=== PATIENT | female | born 1975 | race Caucasian/White ===

== ENCOUNTER 2018-01-08 17:02 | Inpatient (IN) | payer MEDICAID ==
[~2018-01-08] VITALS: Ht 182.9 cm; Wt 124.4 kg
--- NOTE | ~2018-01-08 | CN ---
PATIENT NAME:LIZ RAMESH MEDICAL RECORD: [id number] : 73 LOCATION:[facility] D.2118 ADMIT DATE: 01/08/18 ACCOUNT: [id number] CONSULTING PHYSICIAN: FRANKLIN TOVAR MD REFERRING PHYSICIAN: SATINDER SCHREIBER MD DATE OF CONSULTATION: 01/10/2018 HISTORY OF PRESENT ILLNESS: A 42-year-old female with a history of PE, DVT in the past. She has a history of chest pain. This is ongoing currently with dyspnea, lower extremity edema, hypertension, obesity, hypothyroidism, chest pain both typical and atypical features, elevated D-dimer. PE ruled out, DVT ruled out. We are asked to see concerning her cardiovascular status. PAST MEDICAL HISTORY: Includes: 1. History of pulmonary embolus as described above. 2. Hypertension. 3. Hypothyroidism on replacement. 4. Obesity. MEDICATIONS: Include lisinopril 10 mg p.o. daily, Adderall, Klonopin 1 mg p.o. b.i.d., Maxzide 37.5/25 every day, Synthroid unknown dose. REVIEW OF SYSTEMS: The patient reports easy bruising but reports no swollen glands. The patient reports no fever, no night sweats, no significant weight gain, no significant weight loss. No significant exercise tolerance. The patient reports no dry eyes, no irritation, no vision change. Patient reports no difficulty hearing and no ear pain. Patient reports no frequent nose bleeds or nose and sinus problems. Patient reports on arm pain on exertion. No shortness of breath while lying down. No history of heart murmur. Patient reports no cough, no wheezing or coughing up blood. Patient reports no abdominal pain, no vomiting. Normal appetite. No diarrhea and not vomiting blood. No nausea and no constipation. Patient reports no incontinence. No difficulty urinating. No hematuria. No increased frequency. Patient reports no muscle aches. No weakness, no arthralgias, no back pain. No swelling of the extremities. Patient reports no abnormal mole, no jaundice, no rashes. Reports no loss of consciousness. No weakness and no numbness. No seizures, dizziness, or headaches. The patient reports no depression, no sleep disturbance, feeling safe in a relationship and no alcohol abuse. Patient reports on fatigue. Reports no runny nose or sinus pressure. No itching, no hives, and no frequent sneezing. PHYSICAL EXAMINATION: GENERAL: Middle-aged female in no acute distress. VITAL SIGNS: Blood pressure 120/70, pulse 80 and regular. HEENT: Normocephalic, atraumatic. NECK: No JVD or bruit. HEART: Regular. LUNGS: Good air excursion. ABDOMEN: Soft, nontender. EXTREMITIES: Pulses 2+. No edema. NEUROLOGIC: Grossly intact. DIAGNOSTIC DATA: ECG shows sinus tachycardia with nonspecific ST-T changes, her juvenile T-wave changes, possibly anteriorly. CONSULT REPORT [id number] LIZ RAMESH IMPRESSION: Given overall history, we will plan for diagnostic angiography, intervention based on the above. TRANSINT:[id number] Voice Confirmation ID: [id number] DOCUMENT ID: [id number] FRANKLIN TOVAR MD at 1155 CC: [id number] DICTATION DATE: 01/10/18 0857 IT APPLICATION ARCHITECT: 01/10/18 1102 ADM IN [place] [id number] [place] [address]
--- NOTE | ~2018-01-08 | OP ---
PATIENT NAME: LIZ RAMESH MEDICAL RECORD: [id number] :73 LOCATION:D.M[facility] D.2118 ADMISSION DATE:01/10/18 SURGEON: FRANKLIN TOVAR MD DATE OF OPERATION: 01/10/2018 PROCEDURE: Left heart cath right femoral approach. CATHETERS: A 5-Yoruba sheath, 5/4 Radha, 5/4 pig. The procedure was well tolerated. The patient was returned to maki, sheath removed. ExoSeal device placed. FINDINGS: Left ventriculography in the 30-degree BOYLE view. Normal wall motion, normal systolic function, normal coronary anatomy. LEFT MAIN: Left main is free of disease. LAD: LAD is free of disease. ____. CIRCUMFLEX: Free of disease in marginal system. RIGHT CORONARY ARTERY: Codominant system free of disease. IMPRESSION: Normal systolic function. Normal coronary anatomy. TRANSINT:[id number] Voice Confirmation ID: [id number] DOCUMENT ID: [id number] FRANKLIN TOVAR MD at 1005 CC: [id number] DICTATION DATE: 01/10/18 1510 MANAGER MECHANICAL MAINTENANCE: 01/10/18 1544 ADM IN [place] [id number] [place] [id number]
--- NOTE | ~2018-01-08 | HEMODYNAMI ---
PATIENT:LIZ RAMESH MEDICAL RECORD: [id number] : 73 [facility] D.2118 [id number] ADMISSION DATE: 01/08/18 Generatedon:01/10/201815:10 Patient name: LIZ RAMESH Patient #: [id number] SSN: : 1975 Date of study: 01/10/2018 Page: Of Hemodynamic Procedure Report Patient Data Patient Demographics Procedure consent was obtained First Name: LIZ Gender: Female Last Name: GADIEL : 1975 Patient #: [id number] Age: 42 year(s) Race: Unknown Additional ID: [id number] Contact details [address]: [address] [place] [address] State: [place] City: [place] Zip code: [address] Past Medical History Allergies Allergen Reaction Date Comments Reported Other allergy 01/10/2018 iodine Admission Admission Data Admission Date: 01/08/2018 Admission Time: 17:02 Room #: [facility]8 Procedure Procedure Types Cath Procedure Diagnostic Procedure [facility] w/Coronaries Sedation Charges Moderate Sedation up to 15 minutes Procedure Description Procedure Date Procedure Date: 01/10/2018 Procedure Start Time: 14:55 Procedure End Time: 15:06 Procedure Staff Name Function Jose Alberto Nelson MD Performing Physician Latricia Rivero RT Monitor Parvez Stearns RN Nurse Josie Oneill RT Scrub Procedure Data Cath Procedure Fluoroscopy Diagnostic fluoroscopy Total fluoroscopy Time: 0.9 time: 0.9 min min Diagnostic fluoroscopy Total fluoroscopy dose: 338 dose: 338 mGy mGy Contrast Material Contrast Material Type Amount (ml) Isovue 300 38 Entry Location Entry Primary Successful Side Size Upsize Upsize Entry Closure Succes sful Closure Location (Fr) 1 (Fr) 2 (Fr) Remarks Device Remarks Femoral Right 5 Fr Exoseal artery Estimated blood loss: 5 ml Diagnostic catheters Device Type Used For End Catheter Placement MULTIPACK JL 4.0 5Fr Left Coronary catheter Angiography MULTIPACK 3DRC 5Fr Right Coronary catheter Angiography MULTIPACK Pigtail 5 Fr Multi-vessel catheter Angiography Procedure Complications No complications Procedure Medications Medication Administration Route Dosage Oxygen NC 2 l/min Lidocaine 2% added to field 20 Heparin Flush Bag added to field 2 bags (1000units/500ml NS) 0.9% NaCl I.V. 100 ml/hr Solumedrol I.V. 125 mg Versed I.V. 2 mg Fentanyl I.V. 100 mcg Versed I.V. 1 mg Fentanyl I.V. 50 mcg Fentanyl I.V. 50 mcg Versed I.V. 1 mg Hemodynamics Rest Heart Rate: 95 (bpm) Pressure Samples Time Site Value (mmHg) Purpose Heart Use Rate(bpm) 15:03 LV 128/-13,2 Snapshot 103 Gradients Valve Time Site Site Mean SEP/DFP Peak To Heart Use 1 2 (mmHg) (sec/min) Peak Rate (mmHg) (bpm) Aortic 15:04 LV AO 105 Snapshots Pre Cath Intra NCS Post Cath Vital Signs Time Heart Resp SPO2 NIBP (mmHg) Rhythm Pain Sedation Rate (ipm) (%) Status Level (bpm) 14:44:09 99 16 97 147/90(115) NSR 0 (11) 10(A) , No pain 14:48:38 96 17 98 141/96(116) NSR 0 (11) 10(A) , No pain 14:53:04 94 27 95 155/97(115) NSR 0 (11) 10(A) , No pain 14:57:38 97 16 96 153/86(120) NSR 0 (11) 9(A) , No pain 15:01:58 94 15 94 141/99(127) NSR 0 (11) 9(A) , No pain 15:06:29 101 15 96 145/81(104) NSR 0 (11) 10(A) , No pain Medications Time Medication Route Dose Verified Delivered Reason Notes Eff ectiveness by by 14:49:45 Oxygen NC 2 Jose Alberto Hannon used for l/min [facility] Stearns public relations associate 14:49:52 Lidocaine 2% added 20ml Jose Alberto Abrams for local to vial [facility] anesthetic field MD ERVIN 14:50:00 Heparin Flush added 2 Jose Alberto Abrams used for Bag to bags [facility] Ryan Nelson procedure (1000units/500ml field MD ERVIN NS) 14:50:09 Solumedrol I.V. 125 Jose Alberto Buffie used for for mg [facility] Ryan Stearns public relations associate iodine MD allergy 14:50:09 0.9% NaCl I.V. 100 Jose Alberto Hannon Per ml/hr [facility] Ryan Stearns RN physician 14:55:22 Versed I.V. 2 mg Jose Alberto Padronie for OmarRyan Stearns RN sedation 14:55:29 Fentanyl I.V. 100 Jose Alberto Buffie for mcg OmarRyan Stearns RN sedation 15:00:01 Versed I.V. 1 mg Jose Alberto Padronie for OmarRyan Stearns RN sedation 15:00:05 Fentanyl I.V. 50 Jose Alberto Buffie for mcg Omar Stearns RN sedation 15:04:09 Fentanyl I.V. 50 Jose Alberto Buffie for mcg Omar Stearns RN sedation 15:04:10 Versed I.V. 1 mg Jose Alberto Buffie for [facility] Ryan Stearns RN sedation Procedure Log Time Note 14:38:01 Diagnostic Cath status Elective 14:38:03 Latricia Rivero RT(R) sent for patient. Start room use. 14:38:04 Time tracking: Regular hours 14:38:09 Plan of Care:Hemodynamics will remain stable., Cardiac rhythm will remain stable., Comfort level will be maintained., Respiratory function will remain adequate., Patient/ family verbilizes understanding of procedure., Procedure tolerated without complication., Recovers from procedure without complications.. 14:38:39 Patient received from Med II to [facility] 2 Alert and oriented. Tansferred to table in Supine position. 14:38:41 Warm blankets applied, and fabby hugger turned on for patient comfort. 14:38:41 Correct patient and procedure confirmed by team. 14:38:43 Signed procedure consent form obtained from patient. 14:38:45 ECG and BP/O2 sat monitors applied to patient. 14:39:01 H&P Date Dictated: 01/09/2018 Within 30 days and on chart.. 14:39:03 Pre-procedure instructions explained to patient. 14:39:08 Family in patients room. 14:39:11 Patient NPO since Midnight. 14:39:24 Patient allergic to Other allergyiodine 14:39:29 Is the patient allergic to Iodine/contrast media? Yes. 14:39:31 Was the patient premedicated? Yes 14:39:36 Is patient on blood thinner?No 14:39:40 Patient diabetic? Yes. 14:39:41 If diabetic: On Metformin? Yes 14:40:28 unknown on last day of Metformin. "Its been a while" per patient 14:40:35 Snore? Yes 14:40:37 Sleep apnea? Yes 14:40:48 Airway obstruction? Yes Asthma 14:40:51 Dentures? No ? 14:40:56 Patient pain scale 0/10 ?. 14:41:14 Lab results completed and on chart. 14:41:19 Right groin area was prepped with chlora-prep and draped in sterile fashion 14:41:23 Alarms reviewed by R. N. 14:41:23 Sharps counted by scrub and verified by R.N. 14:41:25 Physician paged 14:42:00 Baseline sample Acquired. 14:42:06 Rhythm: sinus tachycardia 14:42:08 Full Disclosure recording started 14:45:10 Physician arrived 14:45:11 --------ALL STOP TIME OUT------ 14:45:11 Final Timeout: patient, procedure, and site verified with staff and physician. All members of the team are in agreement. 14:45:15 Right groin site verified by team. 14:45:17 Physical assessment completed. ASA score P 2 - A patient with mild systemic disease as per Jose Alberto Nelson MD. 14:45:20 Sedation plan: IV Moderate Sedation Medication:Versed, Fentanyl 14:45:24 Use device set Femoral Dx 14:45:25 ACIST Syringe (68750) opened to sterile field. 14:45:25 Bag Decanter (2002S) opened to sterile field. 14:45:26 Medline Cath Pack ([id number]) opened to sterile field. 14:45:26 SHEATH 5FR Greenway ([id number]) opened to sterile field. 14:45:27 DIAGNOSTIC WIRE .035 260cm J wire (138067) opened to sterile field. 14:45:28 ACIST Hand Control (40821) opened to sterile field. 14:45:28 ACIST Manifold (62765) opened to sterile field. 14:45:29 DIAGNOSTIC Multipack 5Fr catheter set ([id number]) opened to sterile field. 14:45:29 Tegaderm 4 x 4 (1626W) opened to sterile field. 14:49:45 Oxygen 2 l/min NC was administered by Parvez Stearns RN; used for procedure; 14:49:52 Lidocaine 2% 20ml vial added to field was administered by Jose Alberto Nelson MD; for local anesthetic; 14:50:00 Heparin Flush Bag (1000units/500ml NS) 2 bags added to field was administered by Jose Alberto Nelson MD; used for procedure; 14:50:09 Solumedrol 125 mg I.V. was administered by Parvez Stearns RN; used for procedure; for iodine allergy 14:50:09 0.9% NaCl 100 ml/hr I.V. was administered by Parvez Stearns RN; Per physician; 14:53:18 IV started by Parvez Stearns RN inright forearm with a 22 gauge IV catheter with 0.9% NaCl at O. 14:55:22 Versed 2 mg I.V. was administered by Parvez Stearns RN; for sedation; 14:55:29 Fentanyl 100 mcg I.V. was administered by Parvez Stearns RN; for sedation; 14:55:29 Procedure started. 14:55:32 Local anesthetic to right femoral artery with Lidocaine 2% by Jose Alberto Nelson MD.INITIAL ACCESS ONLY 14:55:33 Zero performed for pressure channel P1 14:55:58 A 5 Fr sheath was inserted into the Right Femoral artery 15:00:01 Versed 1 mg I.V. was administered by Parvez Stearns RN; for sedation; 15:00:03 A MULTIPACK JL 4.0 5Fr catheter was advanced over the wire and used for Left Coronary Angiography. 15:00:05 Fentanyl 50 mcg I.V. was administered by Parvez Stearns RN; for sedation; 15:01:32 LCA angiography performed. 15:01:35 Injector settings: Ml/sec: 3, Volume: 6, 15:01:37 Catheter removed. 15:01:42 A MULTIPACK 3DRC 5Fr catheter was advanced over the wire and used for Right Coronary Angiography. 15:02:26 RCA angiography performed. 15:02:29 Injector settings: Ml/sec: 3, Volume: 6, 15:02:44 Catheter removed. 15:02:50 A MULTIPACK Pigtail 5 Fr catheter was advanced over the wire and used for Multi-vessel Angiography. 15:03:57 LV hemodynamics recorded. 15:03:58 LV gram done using BOYLE 15:04:02 Injector settings: Ml/sec: 5, Volume: 15, 15:04:09 Fentanyl 50 mcg I.V. was administered by Parvez Stearns RN; for sedation; 15:04:10 Versed 1 mg I.V. was administered by Parvez Stearns RN; for sedation; 15:04:17 EF : 55 % 15:04:25 Catheter removed. 15:04:40 EXOSEAL 5Fr (EX500) opened to sterile field. 15:04:52 Sheath removed intact; hemostasis achieved with Exoseal to the Right Femoral artery. 15:05:19 Procedure ended.(Physican Out) 15:05:56 Fluoroscopy time 00.90 minutes. 15:06:00 Fluoroscopy dose: 338 mGy 15:06:00 Flurop Dose total: 338 15:06:04 Contrast amount:Isovue 300 38ml. 15:06:05 Sharps counted by scrub and verified by R.N. 15:06:07 Insertion/operative site no bleeding no hematoma. 15:06:10 Post-op/insertion site Right Femoral artery dressed using a 4 x 4 and Tegaderm. 15:06:13 Post right femoral artery:stable 15:06:14 Post Procedure Pulses reassessed and unchanged 15:06:22 Post procedure rhythm: unchanged. 15:06:25 Estimated blood loss: 5 ml 15:06:27 Post procedure instruction explained to patient.Patient verbalizes understanding. 15:06:27 Patient needs reinforcement of post procedure teaching. 15:06:38 Procedure type changed to Cath procedure, Diagnostic procedure, LHC, LHC w/Coronaries, Sedation Charges, Moderate Sedation up to 15 minutes 15:06:39 Procedure and supply charges have been captured, reviewed, submitted and are correct. 15:06:43 Procedure Complication : No complications 15:06:46 Vital chart was stopped 15:06:46 See physician's report for complete and final results. 15:06:49 Report given to Med II. 15:06:51 Patient transfered to Med II with Stretcher. 15:06:54 Procedure ended. 15:06:54 Full Disclosure recording stopped 15:06:59 End room use (Document Last) Device Usage Item Name Manufacture Quantity Catalog Hospital Part Current Minimal L ot# / Number Charge Number Stock Stock Serial# Code ACIST Acist 1 45782 [id number] [id number] [id number] 20 NuLife Recovery (29266) SpinPunch Bag Microtek 1 2001S 005739 64488 844171 5 Decanter [employer] Inc. () Medline Cardinal 1 [id number] 104017 26079 962296 5 Cath Pack Health ([id number]) SHEATH 5FR Terumo 1 WWV045 605964 592527 919950 40 Greenway (FFO276) DIAGNOSTIC St Juanjo 1 116305 589303 865828 086727 30 WIRE .035 260cm J wire (868894) ACIST Hand Acist 1 34753 422919 492698 124724 5 Control Medical (72469) Systems Inc ACIST Acist 1 51480 920782 355386 125256 5 Manifold Medical (98264) Systems Inc DIAGNOSTIC Cardinal 1 [id number] 351901 32200 145098 30 MultipTradeo Health 5Fr catheter set (HG4714) Tegaderm 4 3M 1 1626W 709846 163774 068151 5 x 4 (1626W) MULTIPACK Cardinal 1 107562 5 JL 4.0 5Fr Health catheter MULTIPACK Cardinal 1 478145 5 3DRC 5Fr Health catheter MULTIPACK Cardinal 1 [id number] 5 Pigtail 5 Health Fr catheter EXOSEAL 5Fr Cardinal 1 EX500 719681 738079 781138 10 (EX500) Health Signature Audit [place] Stage Time Signature Unsigned Intra-Procedure 01/10/2018 Latricia Rivero 3:10:15 PM RT(R) Signatures Monitor : Latricia Rivero RT Signature : Date : Time : [facility] [address] [place] [address]
[~2018-01-08 17:02] MED LIST: CARAFATE1 G PO; CIMETIDINE800 MG PO; DILAUD1MGAMP PO; DILAUDID2 MG PO; KLONOPIN1 MG PO; SEROQUEL50 MG PO; VICOPROFEN 7.5/1 TAB PO
[2018-01-08 17:38] VITALS: BP 143/96; BMI 34.0
[2018-01-08 17:58] VITALS: BP 148/103
[2018-01-08 18:46] LABS: BASOPHILS 0.5 % (0-2); HEMATOCRIT 37.7 % (36.0-48.0); HEMOGLOBIN 12.5 g/dL (12-16); IMMATURE GRANULOCYTES 0.2 % (0-5); LYMPHOCYTES 26.8 % (15-50); MCH 28.1 pg (26.0-34.0); MCHC 33.2 g/dL (31.0-37.0); MCV 84.7 fL (80.0-100.0); MEAN PLATELET VOLUME 11.2 fL (7.4-10.4); MONOCYTES 5.3 % (2-11); NEUTROPHILS 64.2 % (40-80); RBC 4.45 10x6/uL (4.00-5.40); RDW 14.2 % (11.5-14.5); WBC 10.1 10x3/uL (4.8-10.8)
[2018-01-08 18:49] LABS: PLATELET COUNT 280 10x3/uL (130-400)
[2018-01-08 19:00] VITALS: BP 168/99
[2018-01-08 19:16] LABS: ALBUMIN 2.9 g/dL (3.4-5.0); ALKALINE PHOSPHATASE 53 U/L (46-116); ALT (SGPT) 14 U/L (10-68); CALC OSMOLALITY 286 mosm/kg (275-300); CALCIUM 8.2 mg/dL (8.5-10.1); CARBON DIOXIDE 26.5 mmol/L (21.0-32.0); CHLORIDE - SERUM 107 mmol/L (98-107); CKMB 0.7 U/L (0.0-3.6); CREATINE KINASE 60 UL (21-215); CREATININE - SERUM 0.7 mg/dL (0.6-1.3); GLUCOSE 119 mg/dL (74-106); POTASSIUM - SERUM 3.4 mmol/L (3.5-5.1); SODIUM 144 mmol/L (136-145); THYROID STIMULATING HORMONE 1.07 uIU/mL (0.36-3.74); TROPONIN-I < 0.017 ng/mL (0.000-0.060); UREA NITROGEN 11 mg/dL (7-18); eGFR NON AFRICAN AMERICAN > 90 mL/min (90-120)
[2018-01-08 20:29] LABS: ERYTHROCYTE SEDIMENTATION RATE 5 mm/hr (0-20)
[2018-01-09] VITALS: BP 155/105
[2018-01-09 04:00] VITALS: BP 211/140
[2018-01-09 08:10] VITALS: BP 207/145
[2018-01-09 11:21] VITALS: BP 111/74
[2018-01-09 16:03] VITALS: BP 112/56
[2018-01-09 19:21] LABS: CKMB 0.3 U/L (0.0-3.6); CREATINE KINASE 34 UL (21-215)
[2018-01-09 19:22] LABS: TROPONIN-I < 0.017 ng/mL (0.000-0.060)
[2018-01-09] MEDS ORDERED: ZESTRIL10 MG PO (19:47)
[2018-01-09] MEDS ORDERED: TRIAMTERENE-HCT1 TA1 PO (19:48)
[2018-01-09] MEDS ORDERED: SYNTHROID25 MCG (19:49)
[2018-01-09] MEDS ORDERED: ADDERALL 5 MG TA5 M1 (19:49)
[2018-01-09] MEDS ORDERED: KLONOPIN1 MG PO (19:49)
[2018-01-09 20:00] VITALS: BP 108/66
[2018-01-10 00:12] LABS: CKMB 0.5 U/L (0.0-3.6); CREATINE KINASE 37 UL (21-215); TROPONIN-I < 0.017 ng/mL (0.000-0.060)
[2018-01-10 04:00] VITALS: BP 120/70
[2018-01-10 09:56] VITALS: BP 139/79
[2018-01-10 10:05] LABS: BASOPHILS 0.4 % (0-2); HEMATOCRIT 33.6 % (36.0-48.0); IMMATURE GRANULOCYTES 0.1 % (0-5); LYMPHOCYTES 27.5 % (15-50); MCH 27.8 pg (26.0-34.0); MCHC 32.7 g/dL (31.0-37.0); MCV 85.1 fL (80.0-100.0); MEAN PLATELET VOLUME 10.9 fL (7.4-10.4); MONOCYTES 6.2 % (2-11); NEUTROPHILS 63.8 % (40-80); PLATELET COUNT 233 10x3/uL (130-400); RBC 3.95 10x6/uL (4.00-5.40); RDW 14.5 % (11.5-14.5); WBC 8.1 10x3/uL (4.8-10.8)
[2018-01-10 10:16] LABS: CALC OSMOLALITY 277 mosm/kg (275-300); CALCIUM 8.1 mg/dL (8.5-10.1); CARBON DIOXIDE 30.2 mmol/L (21.0-32.0); CHLORIDE - SERUM 105 mmol/L (98-107); CREATININE - SERUM 0.6 mg/dL (0.6-1.3); GLUCOSE 111 mg/dL (74-106); POTASSIUM - SERUM 3.9 mmol/L (3.5-5.1); SODIUM 139 mmol/L (136-145); UREA NITROGEN 10 mg/dL (7-18); eGFR NON AFRICAN AMERICAN > 90 mL/min (90-120)
[2018-01-10 12:23] VITALS: BP 125/71
[2018-01-10 16:59] VITALS: BP 138/79
[2018-01-10 19:00] VITALS: BP 135/107
[2018-01-11 00:26] VITALS: BP 139/69
[2018-01-11 04:00] VITALS: BP 150/96
[2018-01-11 09:24] VITALS: BP 134/83
[2018-01-11 11:38] VITALS: BP 135/84
[2018-01-11 12:36] LABS: BASOPHILS 0.2 % (0-2); EOSINOPHILS 0.3 % (0-7); HEMATOCRIT 33.8 % (36.0-48.0); HEMOGLOBIN 10.9 g/dL (12-16); IMMATURE GRANULOCYTES 0.3 % (0-5); LYMPHOCYTES 25.2 % (15-50); MCH 27.6 pg (26.0-34.0); MCHC 32.2 g/dL (31.0-37.0); MCV 85.6 fL (80.0-100.0); MEAN PLATELET VOLUME 10.9 fL (7.4-10.4); MONOCYTES 7.5 % (2-11); NEUTROPHILS 66.5 % (40-80); PLATELET COUNT 251 10x3/uL (130-400); RBC 3.95 10x6/uL (4.00-5.40); RDW 14.3 % (11.5-14.5)
[2018-01-11 12:37] LABS: WBC 12.7 10x3/uL (4.8-10.8)
[2018-01-11 12:43] LABS: INR 1.02 (0.85-1.17)
[2018-01-11 12:49] LABS: ALBUMIN 2.6 g/dL (3.4-5.0); ALKALINE PHOSPHATASE 77 U/L (46-116); ALT (SGPT) 175 U/L (10-68); BILIRUBIN - TOTAL 0.14 mg/dL (0.2-1.3); CALC OSMOLALITY 284 mosm/kg (275-300); CALCIUM 8.3 mg/dL (8.5-10.1); CARBON DIOXIDE 29.3 mmol/L (21.0-32.0); CHLORIDE - SERUM 106 mmol/L (98-107); CREATININE - SERUM 0.5 mg/dL (0.6-1.3); GLUCOSE 124 mg/dL (74-106); POTASSIUM - SERUM 3.7 mmol/L (3.5-5.1); PROTEIN - SERUM 6.4 g/dL (6.4-8.2); SODIUM 143 mmol/L (136-145); UREA NITROGEN 9 mg/dL (7-18); eGFR NON AFRICAN AMERICAN > 90 mL/min (90-120)
[2018-01-11 15:59] VITALS: BP 154/91
[2018-01-11 20:30] VITALS: BP 116/74
[2018-01-12] VITALS (7 sets, daily range): BP systolic 117–166; BP diastolic 78–96
[2018-01-12 06:16] LABS: BASOPHILS 0.1 % (0-2); EOSINOPHILS 0.1 % (0-7); HEMATOCRIT 36.2 % (36.0-48.0); HEMOGLOBIN 11.7 g/dL (12-16); IMMATURE GRANULOCYTES 0.5 % (0-5); LYMPHOCYTES 11.1 % (15-50); MCH 27.9 pg (26.0-34.0); MCHC 32.3 g/dL (31.0-37.0); MCV 86.2 fL (80.0-100.0); MEAN PLATELET VOLUME 11.1 fL (7.4-10.4); MONOCYTES 3.6 % (2-11); NEUTROPHILS 84.6 % (40-80); PLATELET COUNT 272 10x3/uL (130-400); RDW 14.5 % (11.5-14.5); WBC 10.1 10x3/uL (4.8-10.8)
[2018-01-12 06:22] LABS: INR 0.95 (0.85-1.17); PROTIME 12.3 SECONDS (11.6-15.0)
[2018-01-12 06:37] LABS: ALBUMIN 2.7 g/dL (3.4-5.0); ALKALINE PHOSPHATASE 77 U/L (46-116); ALT (SGPT) 138 U/L (10-68); BILIRUBIN - TOTAL 0.16 mg/dL (0.2-1.3); CALCIUM 8.3 mg/dL (8.5-10.1); CARBON DIOXIDE 25.7 mmol/L (21.0-32.0); CHLORIDE - SERUM 105 mmol/L (98-107); CREATININE - SERUM 0.6 mg/dL (0.6-1.3); PROTEIN - SERUM 6.9 g/dL (6.4-8.2); SODIUM 141 mmol/L (136-145); UREA NITROGEN 10 mg/dL (7-18); eGFR NON AFRICAN AMERICAN > 90 mL/min (90-120)
[2018-01-12 06:40] LABS: CALC OSMOLALITY 286 mosm/kg (275-300); GLUCOSE 219 mg/dL (74-106); POTASSIUM - SERUM 4.4 mmol/L (3.5-5.1)
[2018-01-13 05:25] VITALS: BP 119/83
[2018-01-13 06:14] LABS: BASOPHILS 0.5 % (0-2); EOSINOPHILS 0.4 % (0-7); HEMATOCRIT 34.8 % (36.0-48.0); HEMOGLOBIN 11.1 g/dL (12-16); IMMATURE GRANULOCYTES 0.7 % (0-5); LYMPHOCYTES 37.3 % (15-50); MCH 27.9 pg (26.0-34.0); MCHC 31.9 g/dL (31.0-37.0); MCV 87.4 fL (80.0-100.0); MEAN PLATELET VOLUME 11.4 fL (7.4-10.4); NEUTROPHILS 55.1 % (40-80); PLATELET COUNT 285 10x3/uL (130-400); RBC 3.98 10x6/uL (4.00-5.40); RDW 14.9 % (11.5-14.5)
[2018-01-13 06:16] LABS: WBC 14.9 10x3/uL (4.8-10.8)
[2018-01-13 06:23] LABS: INR 0.97 (0.85-1.17); PROTIME 12.5 SECONDS (11.6-15.0)
[2018-01-13 06:34] LABS: ALBUMIN 2.5 g/dL (3.4-5.0); ALKALINE PHOSPHATASE 62 U/L (46-116); ALT (SGPT) 84 U/L (10-68); BILIRUBIN - TOTAL 0.11 mg/dL (0.2-1.3); CALC OSMOLALITY 286 mosm/kg (275-300); CALCIUM 8.5 mg/dL (8.5-10.1); CARBON DIOXIDE 29.5 mmol/L (21.0-32.0); CHLORIDE - SERUM 107 mmol/L (98-107); CREATININE - SERUM 0.6 mg/dL (0.6-1.3); GLUCOSE 118 mg/dL (74-106); POTASSIUM - SERUM 4.5 mmol/L (3.5-5.1); PROTEIN - SERUM 6.1 g/dL (6.4-8.2); SODIUM 143 mmol/L (136-145); UREA NITROGEN 15 mg/dL (7-18); eGFR NON AFRICAN AMERICAN > 90 mL/min (90-120)
[2018-01-13 08:24] VITALS: BP 140/82
[2018-01-13 11:12] VITALS: BP 135/88
[2018-01-13 13:47] VITALS: Ht 182.9 cm; Wt 124.4 kg
[2018-01-13 15:07] VITALS: BP 141/108
[2018-01-13] MEDS ORDERED: ELIQUIS5 MG PO ×2 (17:22→17:25)
[2018-01-14 10:21] LABS: CA125 8.5 U/mL (0.0-38.1)
[2018-01-14 12:17] LABS: ANA REFLEX - DIRECT Negative (Negative)
[2018-01-15 19:12] LABS: HEPATITIS C ANTIBODY <0.1 (0.0-0.9)
== END 2018-01-13 17:49 | disposition home or self-care (01) | DRG 287 ==
LOC: D.M2 17:02 → OBSVTIME 17:02 → D.M2 01-09 12:33
PROVIDERS: Family Medicine; Internal Medicine Hematology & Oncology; Internal Medicine Interventional Cardiology; Internal Medicine Nephrology
PROC: B2151ZZ Fluoroscopy of Left Heart using Low Osmolar Contrast (ICD-10-PCS; 2018-01-10)
PROC: 4A023N7 Measurement of Cardiac Sampling and Pressure, Left Heart, Percutaneous Approach (ICD-10-PCS; 2018-01-10)
PROC: B2111ZZ Fluoroscopy of Multiple Coronary Arteries using Low Osmolar Contrast (ICD-10-PCS; principal; 2018-01-10 12:30)
DX: I82.432 Acute embolism and thrombosis of left popliteal vein (principal); D68.59 Other primary thrombophilia; D64.9 Anemia, unspecified; K59.00 Constipation, unspecified; I10 Essential (primary) hypertension; R07.89 Other chest pain; Z79.01 Long term (current) use of anticoagulants; E03.9 Hypothyroidism, unspecified; I07.1 Rheumatic tricuspid insufficiency; E66.9 Obesity, unspecified; R73.9 Hyperglycemia, unspecified; M25.50 Pain in unspecified joint; Z68.34 Body mass index [BMI] 34.0-34.9, adult; D72.829 Elevated white blood cell count, unspecified; Z86.711 Personal history of pulmonary embolism

== ENCOUNTER → 2018-02-07 14:18 | Outpatient (CLI) | payer MEDICAID ==
[2018-01-13 13:47] VITALS: BMI 37.2
[~2018-02-07 14:18] MED LIST changes: +ADDERALL 5 MG TA5 M1; +ELIQUIS5 MG PO; +SYNTHROID25 MCG; +TRIAMTERENE-HCT1 TA1 PO; +ZESTRIL10 MG PO
== END | disposition home or self-care (01) ==
LOC: D.US 14:18
DX: I82.592 Chronic embolism and thrombosis of other specified deep vein of left lower extremity (principal)

== ENCOUNTER → 2018-03-11 13:39 | Outpatient (CLI) | payer MEDICAID ==
[2018-01-13 13:47] VITALS: BMI 37.2
== END | disposition home or self-care (01) ==
LOC: D.MRI 13:39
DX: M25.562 Pain in left knee (principal)